=== PATIENT | female | born 1975 | race Two or more races ===

== ENCOUNTER 2017-05-10 00:27 | Emergency (ER) | payer SELFPAY ==
[2017-05-10 00:34] VITALS: BP 134/95; TEMP 97.7; O2SAT 95
[2017-05-10] MEDS ORDERED: PENICILLIN VK 250MG PREPACK#6 BTL TAKEHOME ONE (00:41)
--- NOTE | 2017-05-10 00:41 | EDPHY ---
H & P Stated Complaint: Left tooth pain. Time Seen by Provider: 05/10/17 00:38 HPI/ROS: Chief Complaint: Dental pain HPI: 41-year-old woman having pain in her left upper molar for the last 2 days. She has a history of poor dentition. Denies any recent traumas or fractures. Has been taking ibuprofen and Tylenol without relief. Has not seen a dentist. No fevers or chills. Hurts to chew. She is able swallow. No headache. No vision or hearing changes. No fevers or chills. ROS: 10 point Review of Systems is negative except as noted in the HPI. PMH: Denies Social History: [No] smoking, [no] alcohol, [ no recreational drug use] Physical Exam: General: Awake, alert, no acute process Mouth: She has poor dentition multiple old extractions. She has a fracture of her left upper molar. There is tenderness to percussion. There is mild erythema without fluctuance or pointing. There is no trismus. Moist oral mucosa. Neck: Supple, no masses, no lymphadenopathy. - Personal History Current Tetanus/Diphtheria Vaccine: Unsure Current Tetanus Diphtheria and Acellular Pertussis (TDAP): Unsure - Medical/Surgical History Hx Asthma: No Hx Chronic Respiratory Disease: No Hx Diabetes: No Hx Cardiac Disease: No Hx Renal Disease: No Hx Cirrhosis: No Hx Alcoholism: No Hx HIV/AIDS: No Hx Splenectomy or Spleen Trauma: No Other PMH: Ectopic . - Social History Smoking Status: Never smoked Constitutional: Initial Vital Signs Temperature (C) 36.5 C 05/10/17 00:30 Heart Rate 82 05/10/17 00:30 Respiratory Rate 17 05/10/17 00:30 Blood Pressure 134/95 H 05/10/17 00:30 O2 Sat (%) 95 05/10/17 00:30 O2 Delivery Mode Room Air Allergies/Adverse Reactions: No Known Allergies Allergy (Unverified 05/10/17 00:34) Home Medications: Medication Instructions Recorded Penicillin V Potassium [Pen Vk 500 mg PO Q6H 10 Days tab 05/10/17 500mg (*)] Medical Decision Making Procedures: Procedure: ED dental block. Patient was prepped with topical lidocaine. Total of 2 mL of 0.5% bupivacaine was infiltrated into the surrounding area of the tooth. She had good anesthetic result. There are no complications. Procedure performed by me. Departure - Departure Disposition: Home, Routine, Self-Care Clinical Impression: Pain, dental Condition: Good Instructions: Penicillin V (By mouth), Toothache (ED) Additional Instructions: Follow up with dental aid tomorrow. Call after 8:30 in the will get to an appointment the the same day. Take penicillin 2 tablets (500 mg) 3 times a day You may continue taking ibuprofen and acetaminophen as needed for pain. Referrals: [facility] [Outside] - As per Instructions Prescriptions: Penicillin V Potassium [Pen Vk 500mg (*)] 500 mg PO Q6H 10 Days tab
[2017-05-10] MEDS ORDERED: PENICILLIN VK 500 MG TAB PO ONE (00:42)
[2017-05-10] MEDS ORDERED: IBUPROFEN 200 MG TAB PO ONE (00:44)
[2017-05-10 00:56] VITALS: PULSE 87; RESP 18
== END 2017-05-10 00:57 | disposition home or self-care (01) ==
PROC: 3E0X3BZ Introduction of Anesthetic Agent into Cranial Nerves, Percutaneous Approach (ICD-10-PCS; principal; 2017-05-10)
DX: K08.89 Other specified disorders of teeth and supporting structures (principal)